=== PATIENT | male | born 1970 | race Caucasian/White ===

== ENCOUNTER → 2016-10-20 | Outpatient (CLI) | payer BC ==
--- NOTE | 2016-10-21 09:26 | CARD ---
APPROVED REPORT INDICATION Palpitations Reason : Patient complained of pain PROCEDURE The patient underwent an Exercise Stress Test using the Ortiz Protocol. Blood pressure, heart rate, a nd EKG were monitored. An Echocardiogram was performed by semiconductor technician in four stages in quad fashion. At peak stress four se lected images were obtained and placed side by side with resting images for comparison. STRESS ECHO FINDINGS The resting Echocardiogram showed normal left ventricular contractility with an estimated Ejection Fr action of about 55 %. Normal augmentation of myocardial wall segments using a 16 segment model. Test Type: Exercise Stress Nurse/Tech: Gustavo Blackwood RDCS,RVT,RDMS,RT(R) Test Indications: Palpitations Resting ECG: Normal Resting Heart Rate: 70 bpm Resting Blood Pressure: 140/70mmHg Pretest Chest Pain: No chest pain Nurse/Tech Notes Patient stopped exercise after reaching target heart rate. No chest pain reported at exam time. Stress Symptoms None POST EXERCISE Reason for Termination: The patient achieved the targeted heart rate of 160 bpm. Target HR: Yes Max HR: 160 bpm Exercise duration: 9.4 min:sec, 6 Stage Exercise capacity: 16.9METs Max Blood Pressure: 160/70mmHg Blood Pressure response to exercise: Normal blood pressure response during stress. Heart Rate response to exercise: was normal. Chest Pain: No. Arrhythmia: No. ST Change: No. STRESS ECG Stress EKG shows no significant changes. Preliminary Notification Critical Value: No <Conclusion> Good exercise capacity with 13 Mets on Ortiz protocol Normal LV function at rest and with appropriate augmentation with stress. Low risk study
== END | disposition home or self-care (01) ==
LOC: ECHO 12:47
PROVIDERS: ATTEND Internal Medicine Cardiovascular Disease
DX: R00.2 Palpitations (principal); R68.89 Other general symptoms and signs
CPT/HCPCS: 93307; 93350